=== PATIENT | male | born 1940 | race Caucasian/White ===

== ENCOUNTER 2017-09-18 18:59 | Inpatient (IN) | payer MEDICARE, MEDICAID ==
[~2017-09-18] VITALS: Ht 170.2 cm; Wt 78.5 kg
[2017-09-18] MEDS ORDERED: ACET-2154 PO (19:24)
[2017-09-18] MEDS ORDERED: LISI-603 PO (19:24)
[2017-09-18] MEDS ORDERED: MULT-1185 PO (19:24)
[2017-09-18] MEDS ORDERED: OMEP40CA37 PO (19:24)
[2017-09-18] MEDS ORDERED: SIMV40TA5 PO (19:24)
[2017-09-18] MEDS ORDERED: DONE5TAB7 PO (19:24)
[2017-09-18] MEDS ORDERED: SPIR50TA PO (19:24)
[2017-09-18] MEDS ORDERED: FERR325T28 PO (19:24)
[2017-09-18] MEDS ORDERED: DOCU-141 PO (19:24)
[2017-09-18] MEDS ORDERED: METO25TA6 PO (19:24)
[2017-09-18] MEDS ORDERED: LEVO25TA9 PO (19:24)
[2017-09-18 19:32] LABS: BASOPHILS # (AUTO) 0.1 K/uL (0.0-8.0); BASOPHILS % (AUTO) 0.9 % (0.0-2.0); EOSINOPHILS # (AUTO) 0.4 K/uL (0.0-0.7); EOSINOPHILS % (AUTO) 4.3 % (0.0-7.0); HEMOGLOBIN 12.9 g/dL (12.5-16.3); LYMPHOCYTES # (AUTO) 2.5 K/uL (20.0-40.0); LYMPHOCYTES % (AUTO) 27.6 % (20.5-51.5); MEAN CORPUSCULAR HEMOGLOBIN 30.6 uug (23.8-33.4); MEAN CORPUSCULAR HGB CONC 34 g/dL (32.5-36.3); MEAN CORPUSCULAR VOLUME 90.4 fL (73.0-96.2); MONOCYTES # (AUTO) 1.1 K/uL (2.0-10.0); MONOCYTES % (AUTO) 11.6 % (0.0-11.0); NEUTROPHILS % (AUTO) 55.6 % (38.5-71.5); PLATELET COUNT (AUTO) 365 K/uL (152-348); WHITE BLOOD COUNT (AUTO) 9.1 K/uL (3.6-10.2)
[2017-09-18 19:38] LABS: *BILIRUBIN,URIN NEGATIVE (NEGATIVE); *BLOOD, URINE NEGATIVE (NEGATIVE); *CLARITY,URINE CLEAR (CLEAR); *COLOR,URINE YELLOW (YELLOW); *KETONES,URINE NEGATIVE (NEGATIVE); *PROTEIN,URINE NEGATIVE (NEGATIVE); *UROBILINOGEN,URINE 0.2 E.U./dl (NORMAL); LEUKOCYTE ESTERASE ,URINE NEGATIVE (NEGATIVE); NITRITE, URINE NEGATIVE (NEGATIVE); PH,URINE 5.5 (5.0-8.0); UGLUCOSE NEGATIVE (NEGATIVE)
[2017-09-18 19:43] LABS: CARBON DIOXIDE 25 mmol/L (21-32); CHLORIDE 103 mmol/L (98-107); CREATININE 1.4 mg/dL (0.6-1.3); GLUCOSE 137 mg/dL (74-106); UREA NITROGEN, BLOOD 22 mg/dL (7-18)
[2017-09-18 19:48] LABS: ETHANOL < 3 MG/DL (0-0)
[2017-09-18 19:49] LABS: ALANINE AMINOTRANSFERASE 22 U/L (16-63); ALKALINE PHOSPHATASE 55 U/L (50-136); ASPARTATE AMINOTRANSFERASE 13 U/L (15-37); BILIRUBIN,DIRECT 0.1 mg/dL (0.0-0.2); BILIRUBIN,TOTAL 0.2 mg/dL (0.2-1.0); TOTAL PROTEIN, SERUM 7.2 g/dL (6.4-8.2)
[2017-09-18 19:49] LABS: WBC,URINE 0-3 /HPF (0-3)
[2017-09-18 19:50] LABS: ACETAMINOPHEN < 2.0 ug/mL (10-30)
[2017-09-18 19:54] LABS: *AMPHETAMINE, URINE NEGATIVE (NEGATIVE); *BARBITURATE, URINE NEGATIVE (NEGATIVE); *CANNABINOID, URINE NEGATIVE (NEGATIVE); *COCCAINE, URINE NEGATIVE (NEGATIVE); *OPIATE, URINE NEGATIVE (NEGATIVE); *PHENCYCLIDINE SCREEN,URINE NEGATIVE (NEGATIVE)
[2017-09-18 19:56] LABS: THYROID STIMULATING HORMONE 2.642 mIU/mL (0.358-3.740)
[2017-09-18 22:35] VITALS: BP 141/79
[2017-09-18] MEDS ORDERED: TEMAZEPAM 7.5 MG CAPSULE PO PRN (23:15)
[2017-09-18] MEDS ORDERED: MAG HYDROX/AL HYDROX/SIMETH 30 ML LIQUID UDC PO PRN (23:15)
[2017-09-18] MEDS ORDERED: ACETAMINOPHEN 325 MG TABLET PO PRN (23:15)
[2017-09-18] MEDS ORDERED: MAGNESIUM HYDROXIDE 30 ML LIQUID UDC PO PRN (23:15)
[2017-09-18] MEDS ORDERED: CLONAZEPAM 0.5 MG TABLET PO PRN (23:45)
[2017-09-19 07:30] VITALS: BP 110/67
[2017-09-19] MEDS ORDERED: DEXTROSE 50% 50 ML DISP.SYRIN IV PRN (11:15)
[2017-09-19] MEDS ORDERED: Medication Not On Formulary EA (Omeprazole 40 MG) PO SCH (11:15)
[2017-09-19] MEDS: BLOOD SUGAR DIAGNOSTIC 1 EACH STRIP VI SCH ×3 (12:12→21:47)
[2017-09-19] MEDS: PANTOPRAZOLE SODIUM 40 MG TABLET.DR PO SCH (12:21)
[2017-09-19] MEDS: LEVOTHYROXINE SODIUM 25 MCG TABLET PO SCH (12:22)
[2017-09-19] MEDS: ESCITALOPRAM OXALATE 10 MG TABLET PO SCH (12:35)
[2017-09-19 15:40] VITALS: BP 94/43
[2017-09-19] MEDS: DOCUSATE SODIUM 100 MG CAPSULE PO SCH (17:26)
[2017-09-19 21:32] VITALS: BP 142/65
[2017-09-20] MEDS: LEVOTHYROXINE SODIUM 25 MCG TABLET PO SCH (06:10)
[2017-09-20] MEDS: PANTOPRAZOLE SODIUM 40 MG TABLET.DR PO SCH (06:10)
[2017-09-20] MEDS: BLOOD SUGAR DIAGNOSTIC 1 EACH STRIP VI SCH ×4 (06:47→21:07)
[2017-09-20 07:30] VITALS: BP 125/71
[2017-09-20 07:59] LABS: CHLORIDE 105 mmol/L (98-107); CREATININE 1.1 mg/dL (0.6-1.3); POTASSIUM 3.9 mmol/L (3.5-5.1); UREA NITROGEN, BLOOD 18 mg/dL (7-18)
[2017-09-20 08:17] LABS: CARBON DIOXIDE 24 mmol/L (21-32)
[2017-09-20] MEDS ORDERED: Medication Not On Formulary EA (Multivit-Min/Iron Fum/Folic AC (Multi-Vitamin-Minerals T PO SCH (09:00)
[2017-09-20] MEDS: DOCUSATE SODIUM 100 MG CAPSULE PO SCH ×2 (09:35→17:53)
[2017-09-20] MEDS: ESCITALOPRAM OXALATE 10 MG TABLET PO SCH (09:35)
[2017-09-20] MEDS: MULTIVIT, IRON, MIN NO. 8, FA TABLET PO SCH (09:36)
[2017-09-20] MEDS: METOPROLOL TARTRATE 25 MG TABLET PO SCH (09:36)
[2017-09-20 09:42] LABS: GLUCOSE 109 mg/dL (74-106)
[2017-09-20 15:32] VITALS: BP 106/65
[2017-09-21] MEDS: LEVOTHYROXINE SODIUM 25 MCG TABLET PO SCH (07:19)
[2017-09-21] MEDS: PANTOPRAZOLE SODIUM 40 MG TABLET.DR PO SCH (07:19)
[2017-09-21 07:30] VITALS: BP 97/64
[2017-09-21] MEDS: BLOOD SUGAR DIAGNOSTIC 1 EACH STRIP VI SCH ×4 (07:41→20:57)
[2017-09-21] MEDS: DOCUSATE SODIUM 100 MG CAPSULE PO SCH ×2 (08:27→17:39)
[2017-09-21] MEDS: MULTIVIT, IRON, MIN NO. 8, FA TABLET PO SCH (08:27)
[2017-09-21] MEDS: ESCITALOPRAM OXALATE 10 MG TABLET PO SCH (08:28)
[2017-09-21] MEDS: METOPROLOL TARTRATE 25 MG TABLET PO SCH (08:28)
[2017-09-21 15:40] VITALS: BP 119/66
[2017-09-21 20:54] VITALS: BP 111/61
[2017-09-21] MEDS: INSULIN REGULAR, HUMAN 300 UNIT/3 ML VIAL SQ PRN (20:58)
[2017-09-22] MEDS: LEVOTHYROXINE SODIUM 25 MCG TABLET PO SCH (06:54)
[2017-09-22] MEDS: PANTOPRAZOLE SODIUM 40 MG TABLET.DR PO SCH (06:55)
[2017-09-22] MEDS: BLOOD SUGAR DIAGNOSTIC 1 EACH STRIP VI SCH ×4 (06:58→21:10)
[2017-09-22 07:30] VITALS: BP 112/54
[2017-09-22 07:53] LABS: BASOPHILS # (AUTO) 0.1 K/uL (0.0-8.0); BASOPHILS % (AUTO) 0.7 % (0.0-2.0); EOSINOPHILS # (AUTO) 0.4 K/uL (0.0-0.7); EOSINOPHILS % (AUTO) 5.4 % (0.0-7.0); HEMATOCRIT 40.7 % (36.7-47.1); LYMPHOCYTES # (AUTO) 2.2 K/uL (20.0-40.0); LYMPHOCYTES % (AUTO) 26.4 % (20.5-51.5); MEAN CORPUSCULAR HGB CONC 34 g/dL (32.5-36.3); MEAN CORPUSCULAR VOLUME 90.4 fL (73.0-96.2); MONOCYTES % (AUTO) 12.4 % (0.0-11.0); NEUTROPHILS # (AUTO) 4.5 K/uL (1.8-8.9); NEUTROPHILS % (AUTO) 55.1 % (38.5-71.5); PLATELET COUNT (AUTO) 389 K/uL (152-348); WHITE BLOOD COUNT (AUTO) 8.2 K/uL (3.6-10.2)
[2017-09-22 08:07] LABS: ALANINE AMINOTRANSFERASE 25 U/L (16-63); ALKALINE PHOSPHATASE 61 U/L (50-136); ASPARTATE AMINOTRANSFERASE 19 U/L (15-37); BILIRUBIN,TOTAL 0.6 mg/dL (0.2-1.0); CARBON DIOXIDE 28 mmol/L (21-32); CHLORIDE 98 mmol/L (98-107); CREATININE 1.2 mg/dL (0.6-1.3); GLUCOSE 116 mg/dL (74-106); MAGNESIUM 1.8 mg/dL (1.8-2.4); PHOSPHOROUS 3.1 mg/dL (2.5-4.9); TOTAL PROTEIN, SERUM 7.9 g/dL (6.4-8.2); UREA NITROGEN, BLOOD 26 mg/dL (7-18)
[2017-09-22] MEDS: METOPROLOL TARTRATE 25 MG TABLET PO SCH (09:00)
[2017-09-22] MEDS: ESCITALOPRAM OXALATE 10 MG TABLET PO SCH (09:28)
[2017-09-22] MEDS: DOCUSATE SODIUM 100 MG CAPSULE PO SCH ×2 (09:28→17:09)
[2017-09-22] MEDS: MULTIVIT, IRON, MIN NO. 8, FA TABLET PO SCH (09:29)
[2017-09-22] MEDS: INSULIN REGULAR, HUMAN 300 UNIT/3 ML VIAL SQ PRN (12:17)
[2017-09-22 13:00] VITALS: BP 113/60
[2017-09-22 19:30] VITALS: BP 104/61
[2017-09-23] MEDS: PANTOPRAZOLE SODIUM 40 MG TABLET.DR PO SCH (06:43)
[2017-09-23] MEDS: LEVOTHYROXINE SODIUM 25 MCG TABLET PO SCH (06:44)
[2017-09-23] MEDS: BLOOD SUGAR DIAGNOSTIC 1 EACH STRIP VI SCH (07:18)
[2017-09-23 07:30] VITALS: BP 107/77
[2017-09-23] MEDS: ESCITALOPRAM OXALATE 10 MG TABLET PO SCH (08:38)
[2017-09-23] MEDS: METFORMIN HCL 500 MG TABLET PO SCH ×2 (08:38→16:10)
[2017-09-23] MEDS: MULTIVIT, IRON, MIN NO. 8, FA TABLET PO SCH (08:38)
[2017-09-23] MEDS: DOCUSATE SODIUM 100 MG CAPSULE PO SCH ×2 (08:38→16:10)
[2017-09-23] MEDS: METOPROLOL TARTRATE 25 MG TABLET PO SCH (08:39)
[2017-09-23 15:33] VITALS: BP 112/66
[2017-09-23 19:30] VITALS: BP 119/63
[2017-09-24] MEDS: LEVOTHYROXINE SODIUM 25 MCG TABLET PO SCH (06:08)
[2017-09-24] MEDS: PANTOPRAZOLE SODIUM 40 MG TABLET.DR PO SCH (06:08)
[2017-09-24 07:30] VITALS: BP 114/60
[2017-09-24] MEDS: METFORMIN HCL 500 MG TABLET PO SCH ×2 (09:06→17:32)
[2017-09-24] MEDS: ESCITALOPRAM OXALATE 10 MG TABLET PO SCH (09:06)
[2017-09-24] MEDS: MULTIVIT, IRON, MIN NO. 8, FA TABLET PO SCH (09:06)
[2017-09-24] MEDS: DOCUSATE SODIUM 100 MG CAPSULE PO SCH ×2 (09:06→17:32)
[2017-09-24] MEDS: METOPROLOL TARTRATE 25 MG TABLET PO SCH (09:07)
[2017-09-24 15:00] VITALS: BP 124/67
[2017-09-24 19:54] VITALS: BP 107/61
[2017-09-25] MEDS: PANTOPRAZOLE SODIUM 40 MG TABLET.DR PO SCH (06:23)
[2017-09-25] MEDS: LEVOTHYROXINE SODIUM 25 MCG TABLET PO SCH (06:23)
[2017-09-25 08:50] VITALS: BP 104/60
[2017-09-25 09:00] VITALS: BP 104/60
[2017-09-25] MEDS: METOPROLOL TARTRATE 25 MG TABLET PO SCH (09:00)
[2017-09-25] MEDS: DOCUSATE SODIUM 100 MG CAPSULE PO SCH (09:22)
[2017-09-25] MEDS: ESCITALOPRAM OXALATE 10 MG TABLET PO SCH (09:22)
[2017-09-25] MEDS: MULTIVIT, IRON, MIN NO. 8, FA TABLET PO SCH (09:24)
[2017-09-25] MEDS: METFORMIN HCL 500 MG TABLET PO SCH (09:27)
== END 2017-09-25 13:30 | DRG 885 ==
LOC: ER 19:17 → GPS 22:05
PROVIDERS: ADMIT Psychiatry & Neurology Psychiatry; ATTEND Internal Medicine
DX: F33.2 Major depressive disorder, recurrent severe without psychotic features (principal); N17.0 Acute kidney failure with tubular necrosis; E11.65 Type 2 diabetes mellitus with hyperglycemia; R45.851 Suicidal ideations; F29 Unspecified psychosis not due to a substance or known physiological condition; I48.91 Unspecified atrial fibrillation; E03.9 Hypothyroidism, unspecified; D64.9 Anemia, unspecified; E11.51 Type 2 diabetes mellitus with diabetic peripheral angiopathy without gangrene; E78.5 Hyperlipidemia, unspecified; I10 Essential (primary) hypertension; K21.9 Gastro-esophageal reflux disease without esophagitis; Z91.5 Personal history of self-harm; D47.3 Essential (hemorrhagic) thrombocythemia; R94.31 Abnormal electrocardiogram [ECG] [EKG]
CPT/HCPCS: 36415; 71045; 80307; 83735; 84100; 84443; 85025; 85730; 93005; A4663; G0480; G0480-TC; J1815